=== PATIENT | female | born 1955 | race Caucasian/White ===

== ENCOUNTER 2019-04-13 03:45 | Inpatient (IN) ==
--- NOTE | 2019-04-06 09:00 | EKG Report ---
Test Performed on : 04/06/2019 08:43:55 AM Test Reason : PAT Blood Pressure : / mmHG Vent. Rate : 067 BPM Atrial Rate : 067 BPM P-R Int : 158 ms QRS Dur : 078 ms QT Int : 388 ms P-R-T Axes : 060 063 070 degrees QTc Int : 409 ms Normal sinus rhythm. Normal ECG No previous ECGs available Confirmed by Vic CINTRON, Brody Munson ([id number]) on 04/06/2019 5:23:06 PM
[2019-04-06 09:26] LABS: HEMATOCRIT 43.4 % (37.0-47.0); MCH 30.9 PG (27-31); MCHC 34.6 g/dL (33-37); MCV 89.5 FL (81-99); MPV 9.7 FL (7.4-10.4); RBC 4.85 XMIL (4.2-5.4); RDW 13.6 % (11.5-14.5); WBC 7.7 X1000 (4.8-10.8)
[2019-04-06 09:46] LABS: AGAP 12; BUN 10 mg/dL (8-22); CALCIUM 10.2 mg/dL (8.8-10.2); CHLORIDE 90 mmol/L (98-107); COSMO 259; CREATININE 0.6 mg/dL (0.5-0.9); ESTIMATED GFR > 60; GLUCOSE 88 mg/dL (70-104); POTASSIUM 4.4 mmol/L (3.5-5.1); SODIUM 130 mmol/L (136-145); TCO2 28 mmol/L (25-35)
[2019-04-13] MEDS ORDERED: LR 1,000 ML ONE (05:53)
[2019-04-13] MEDS ORDERED: KEFZOL 1 GM/D5W 1 GM/50 ML IVPB ONE (05:53)
[2019-04-13] MEDS ORDERED: DIPRIVAN 1% ONE (06:16)
[2019-04-13] MEDS ORDERED: FENTANYL ONE (06:17)
[2019-04-13] MEDS ORDERED: SENSORCAINE 0.25%/EPI 1:200,000 ONE (06:35)
[2019-04-13] MEDS ORDERED: PAPAVERINE ONE ×2 (06:35→06:37)
[2019-04-13] MEDS ORDERED: HEPARIN ONE ×2 (06:35)
[2019-04-13] MEDS ORDERED: KEFZOL ONE (06:35)
[2019-04-13] MEDS ORDERED: NS 1,000 ML ONE ×3 (06:36→10:32)
[2019-04-13] MEDS ORDERED: REGLAN ONE (07:00)
[2019-04-13] MEDS ORDERED: PEPCID ONE (07:00)
[2019-04-13] MEDS ORDERED: THROMBIN-JMI ONE (07:06)
[2019-04-13] MEDS ORDERED: RECOTHROM ONE (07:09)
[2019-04-13] MEDS ORDERED: NEO-SYNEPHRINE ONE (07:22)
[2019-04-13] MEDS ORDERED: QUELICIN (DOSE) ONE (07:22)
[2019-04-13] MEDS ORDERED: ZOFRAN ONE ×2 (07:22→09:16)
[2019-04-13] MEDS ORDERED: NORCURON ONE (07:22)
[2019-04-13] MEDS ORDERED: HEPARIN (DOSE) ONE (07:22)
[2019-04-13] MEDS ORDERED: SODIUM CHLORIDE 0.9% 10 ML ONE (07:22)
[2019-04-13] MEDS ORDERED: XYLOCAINE-MPF 2% ONE (07:22)
[2019-04-13 08:19] LABS: URINE SOURCE CATH
[2019-04-13 08:26] LABS: BILIRUBIN URINE NEGATIVE (NEGATIVE); BLOOD URINE NEGATIVE (NEGATIVE); COLOR STRAW; GLUCOSE URINE NEGATIVE (NEGATIVE); KETONE URINE NEGATIVE (NEGATIVE); LEUKOCYTES URINE NEGATIVE (NEGATIVE); NITRITE URINE NEGATIVE (NEGATIVE); PH URINE 7.5; PROTEIN URINE NEGATIVE (NEGATIVE); SP GRAVITY URINE 1.007; TURBIDITY URINE CLEAR (CLEAR); UR EPITHELIAL CELLS <10 /HPF (<10); URINE BACTERIA NEGATIVE /HPF; URINE RBC <10 /HPF (<10); URINE WBC <10 /HPF (<10); UROBILINOGEN URINE NORMAL (NORMAL)
[2019-04-13 08:47] LABS: HEMATOCRIT 34.9 % (37.0-47.0); HEMOGLOBIN 12.1 g/dL (12.0-16.0)
[2019-04-13 08:56] LABS: AGAP 12; BUN 6 mg/dL (8-22); CALCIUM 8.2 mg/dL (8.8-10.2); CHLORIDE 94 mmol/L (98-107); COSMO 261; CREATININE 0.3 mg/dL (0.5-0.9); ESTIMATED GFR > 60; GLUCOSE 216 mg/dL (70-104); POTASSIUM 3.7 mmol/L (3.5-5.1); SODIUM 128 mmol/L (136-145); TCO2 22 mmol/L (25-35)
[2019-04-13] MEDS ORDERED: MORPHINE ONE ×2 (09:11→10:35)
[2019-04-13] MEDS ORDERED: DECADRON ONE (09:16)
[2019-04-13] MEDS ORDERED: LABETALOL IV ONE (10:45)
--- NOTE | 2019-04-13 11:16 | OPERATIVE NOTE ---
PROCEDURE DATE: 04/13/2019 OPERATION: 1. Open left iliac arteriogram. 2. Aortobifemoral bypass. 3. Left common femoral endarterectomy. SURGEON: Varghese Stallworth MD. LOCKSTITCHER: Shay Mckeon RN. PREOPERATIVE DIAGNOSIS: Leriche syndrome. 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 FINDINGS: A retrograde arteriogram showed complete occlusion of the left common iliac with no retrograde flow into the aorta. DESCRIPTION OF PROCEDURE: After satisfactory general endotracheal anesthesia was achieved, the abdomen and groins were prepped and draped in a sterile fashion. An Ioban drape was used. Prophylactic Kefzol was given. The vertical incision was made in the left groin. We dissected down to the common femoral artery. We surrounded it with an umbilical tape and a vessel loop. 5000 units of heparin were given. We used a 7-Samoan sheath to access the left common femoral, just above the common femoral plaque. We passed a 7-Samoan sheath. We then shot a retrograde arteriogram with the findings above noted, that being common iliac occlusion with absolutely no retrograde flow into the aorta. So at this point, we realized an aortobifemoral bypass would be necessary. We then made a vertical incision in the right groin and dissected down to the common femoral, surrounded with an umbilical tape. The branch vessels were surrounded with vessel loops. Small branches were surrounded with 2-0 silks. We then made a midline abdominal incision. Dissection carried through the subcutaneous tissue through the midline fascia, entering the abdominal cavity the extent of the skin incision. Satisfactory hemostasis was achieved. We reflected the bowel to the right. We incised the retroperitoneum and dissected down to the aorta. We spared the inferior mesenteric artery. We spared the inferior mesenteric vein as well. Because of the calcific nature of the aorta we had to go all the way up to the left renal vein in order to clamp the aorta. After we exposed the aorta we then reflected the bowel to the left, used a bowel bag and then placed the bowel within the bowel bag and secured it. We used our Bookwalter retractor then to place retractors for the abdominal wall to the left cephalad and then also to retract the bowel to the right. This gave us adequate exposure to the retroperitoneum and the aorta. We then made tunnels from the groins to the abdominal aorta right along the course of the iliac vessels so we went posterior to the ureters. We passed umbilical tapes to maintain the tract that had been made. We did that on both sides. We then obtained a 14 x 7 bifurcated Dacron collagen impregnated graft so call Hemashield graft. We cut the aortic portion of the graft to shorten it somewhat and we then made a cuff to go on it. A small cuff would be used to surround the anastomosis. We then passed a side-biting clamp to the level of the renal vein. We passed it around the aorta and then clamped the aorta right at the level of the left renal vein. We obtained a TA 30 vascular stapler and used it a few cm distal to clamp and staple the distal aorta. We then cut off the cut out a portion of the wall. There was significant calcific plaque posteriorly which actually broke off the aortic wall and made the posterior aspect of the aortic wall somewhat tenuous. We then sewed the 14 x 7 Dacron graft to the aorta using a running 3-0 Prolene stitch. As we neared completion and finished the proximal anastomosis we then flushed the graft. Good flow was present into the graft. Good pulse was palpated. There was not a significant bleeding that would require any additional stitches. We then passed the cuff up over the anastomosis and once again, tested the anastomosis and again hemostasis was satisfactory. We waited a few minutes and did it again in order to test it again and once again, there was no bleeding that would require additional stitches and a good pulse was present in the graft. We then sucked out the limbs of the graft and then used a long Tessa clamp from the groins, went along the course of the previously made tract and pulled the limbs of the graft down to the groins taking them posterior to the ureters. We extended the graft adequately. There was no redundancy noted. We then began on the right side 1st and made arteriotomy. Fairly significant plaque was present in the right common femoral but we did not feel that we had to do an endarterectomy in order to sew the graft to the artery. We had backbleeding from the profunda as well as the deep femoral. We passed 3 dilators to prove that. We then cut the graft to match the arteriotomy and constructed the anastomosis using a 5-0 Prolene stitch. Upon completion, we clamped off the left limb of the aortobifemoral graft, and flushed the right limb. Good flow was present. We then. We finished the anastomosis, and we open the right limb. Additional stitches were required to achieve complete hemostasis of this anastomosis. We placed some Gel-Foam an antibiotic sponge and then turned our attention the left-side. We removed the side-biting clamp from the aorta. We then did the same thing on the left side. We had to clamp the external iliac off and remove our 7-Samoan sheath that had been placed previously and then where the 7-Samoan sheath had been we began there and used our Cornejo scissors to open the artery. The plaque was so significant that we had to do an endarterectomy of the common femoral plaque in order to have adequate lumen to sew to. We then cut the graft to match the arteriotomy. The arteriotomy did extend into the superficial femoral artery. Once again, passed the dilator through the profunda and the superficial femoral and had backbleeding from each of these. We then constructed the anastomosis to this artery as well. As we neared completion, we flushed the left limb of the graft. Good flow was present. No clots were seen. We then finished the anastomosis and flow was established. A couple of extra stitches were used to achieve complete hemostasis. We then turned our attention, we once again, placed an antibiotic sponge in the left groin and then went back to the abdomen. The retroperitoneum did not show any evidence of active bleeding from the proximal anastomosis. We then proceeded to close the peritoneum with a 3-0 Polysorb running stitch. We then returned the bowel to the abdominal cavity from the bag. We laid the omentum over the bowel. We then closed the anterior peritoneum with a 2-0 chromic. We closed the anterior fascia with a running #2 Prolene. We turned our attention to the right groin and closed the right groin in 2 layers with a 2-0 Polysorb running 1st and then 3-0 Polysorb simple subcutaneous stitches secondly. We did the same thing on the left side. Once again, hemostasis was satisfactory. A pulse was noted within both superficial and profunda femoral arteries. We then proceeded to close the skin with steven at all the incision. Sterile dressings were applied. She tolerated it well. Estimated blood loss was about 500 mL. We only used less than 15 mL for retrograde arteriogram of contrast. She tolerated it well, was sent to the recovery room in stable condition. cc: MD Jarett Fermin MD
[2019-04-13 11:52] LABS: ALLEN TEST YES; BE -4.4 mmoll (-3.0-3.0); BLOOD TYPE ARTERIAL; HCO3-(ACT) 21.5 mmoll (20.0-26.0); METHB 1.2 % (0.0-1.5); O2(CT) 14.6 mL/dL (15.0-23.0); O2HB 96.6 % (95.0-99.0); PCO2(98.6) 43 mmHg (35-45); PO2(98.6) 105 mmHg (60-100); SAMPLE BLOOD; SAO2 99.6 % (95.0-100.0); SRATE 10 BPM; THB 10.6 g/dL (11.5-17.4); TVOL 400 mL; pH(98.6) 7.31 (7.35-7.45)
[2019-04-13 11:55] LABS: MODALITY VENTILATOR
[2019-04-13] MEDS: NS 1,000 ML IV SCH ×2 (13:04→19:32)
[2019-04-13] MEDS: DILAUDID IV PRN ×3 (13:42→20:19)
[2019-04-13] MEDS: KEFZOL 1 GM/D5W 1 GM/50 ML IVPB IV SCH ×2 (15:46→22:35)
[2019-04-13] MEDS: ZOFRAN IV PRN (19:31)
--- NOTE | 2019-04-13 20:17 | GENERAL SURGERY PROGRESS NOTE ---
DATE: 04/13/2019 SUBJECTIVE: She is awake and alert. She is extubated. Her heart rate is 91, blood pressure is 118/88. She has bilateral breath sounds. Her bandages are dry. Her legs are warm. She has normal sensation in her legs. Her postop hemoglobin was 12.1. We will check her labs in the morning. Check a chest x-ray in the morning. cc: Varghese Stallworth MD
[2019-04-13] MEDS ORDERED: PHENERGAN IV ONE (21:40)
[2019-04-13] MEDS ORDERED: SODIUM CHLORIDE 0.9% INJ ONE (21:40)
[2019-04-13] MEDS: PERIDEX MT SCH (21:56)
[2019-04-14] MEDS: DILAUDID IV PRN ×6 (03:06→23:17)
[2019-04-14] MEDS: NS 1,000 ML IV SCH ×4 (03:11→20:11)
[2019-04-14] MEDS: KEFZOL 1 GM/D5W 1 GM/50 ML IVPB IV SCH ×3 (06:00→23:14)
[2019-04-14 06:42] LABS: ALLEN TEST YES; BE -4.8 mmoll (-3.0-3.0); BLOOD TYPE ARTERIAL; HCO3-(ACT) 21.1 mmoll (20.0-26.0); METHB 1.2 % (0.0-1.5); O2(CT) 13.5 mL/dL (15.0-23.0); O2HB 94.7 % (95.0-99.0); PCO2(98.6) 31 mmHg (35-45); PO2(98.6) 74 mmHg (60-100); SAMPLE BLOOD; SAO2 97.5 % (95.0-100.0); THB 10.1 g/dL (11.5-17.4)
[2019-04-14 06:43] LABS: MODALITY ROOM AIR
[2019-04-14 06:47] LABS: BASO# 0.01 X1000 (0.0-0.2); BASO% 0.1 % (0.0-0.8); HEMATOCRIT 30.3 % (37.0-47.0); HEMOGLOBIN 10.4 g/dL (12.0-16.0); IMM GRAN# 0.06 X1000 (0.0-0.04); IMM GRAN% 0.3 % (0.0-0.5); LYMPH# 1.64 X1000 (1.2-3.4); LYMPH% 8.9 % (20.5-51.1); MCH 30.6 PG (27-31); MCHC 34.3 g/dL (33-37); MCV 89.1 FL (81-99); MONO# 2.12 X1000 (0.11-0.59); MONO% 11.5 % (1.7-9.3); MPV 10.4 FL (7.4-10.4); NEUT# 14.68 X1000 (1.4-6.5); NEUT% 79.2 % (42.2-75.2); PLT 214 X1000 (130-400); RDW 13.3 % (11.5-14.5); WBC 18.51 X1000 (4.8-10.8)
--- NOTE | 2019-04-14 07:05 | Diag Imaging Result Doc PS360 ---
EXAM: CHEST-PORTABLE 04/14/2019 HISTORY: post op TECHNIQUE: AP portable at 0509 COMMENT: There is no evidence of acute cardiac or pulmonary disease and no previous studies are available for comparison. IMPRESSION: Normal chest. Electronically signed by Amando Leija 04/14/2019 7:03 AM
[2019-04-14 07:11] LABS: CALCIUM 8.3 mg/dL (8.8-10.2); POTASSIUM 4.5 mmol/L (3.5-5.1)
[2019-04-14] MEDS ORDERED: SODIUM CHLORIDE 0.9% INJ PRN ×2 (08:44→11:11)
[2019-04-14] MEDS: PERIDEX MT SCH ×2 (10:01→20:12)
[2019-04-14] MEDS: DEPAKOTE PO SCH (10:07)
[2019-04-14] MEDS: PRINZIDE 20/12.5MG PO SCH (10:07)
--- NOTE | 2019-04-14 10:19 | GENERAL SURGERY PROGRESS NOTE ---
DATE: 04/14/2019 SUBJECTIVE: She is postop day 1 after aortobifemoral bypass. She is doing generally well. OBJECTIVE: General: She is awake and alert. Vital Signs: Her heart rate is about 108. Blood pressure was 160/100. Her respiratory rate is 20. She is on room air. Respiratory: Her lungs sound clear. Urine Output: Her urine output has picked up overnight. Laboratory data reveals a pH of 7.40, pCO2 of 31, and pO2 of 74. Her lactate is 3. Her chest x- ray is clear. Her hemoglobin is 10.4, hematocrit 30, and white count 18,000. Sodium is 134, potassium 4.5, chloride 100, carbon dioxide 17, BUN 18, and creatinine 1. ASSESSMENT AND PLAN: Her legs are warmer than they were preop. She does have Doppler flow at both posterior tibial positions. She says that her legs feel better. The plan is to continue with her IV fluids at 125. We will allow her to have ice chips. We will recheck her labs tomorrow. cc: Varghese Stallworth MD
[2019-04-14] MEDS: ZOFRAN IV PRN (11:09)
[2019-04-14] MEDS: PHENERGAN IV PRN ×2 (11:32→17:43)
[2019-04-15] MEDS: ZOFRAN IV PRN ×4 (00:06→20:43)
[2019-04-15] MEDS: PHENERGAN IV PRN ×2 (02:16→17:47)
[2019-04-15] MEDS: DILAUDID IV PRN ×8 (02:50→23:40)
[2019-04-15] MEDS: NS 1,000 ML IV SCH ×4 (04:23→20:42)
[2019-04-15 05:23] LABS: BASO# 0.01 X1000 (0.0-0.2); BASO% 0.1 % (0.0-0.8); HEMATOCRIT 20.4 % (37.0-47.0); IMM GRAN# 0.04 X1000 (0.0-0.04); IMM GRAN% 0.4 % (0.0-0.5); LYMPH# 1.37 X1000 (1.2-3.4); LYMPH% 12.3 % (20.5-51.1); MCH 30.7 PG (27-31); MCHC 34.3 g/dL (33-37); MCV 89.5 FL (81-99); MONO% 11.7 % (1.7-9.3); MPV 9.9 FL (7.4-10.4); NEUT# 8.41 X1000 (1.4-6.5); NEUT% 75.5 % (42.2-75.2); PLT 162 X1000 (130-400); RBC 2.28 XMIL (4.2-5.4); RDW 13.5 % (11.5-14.5); WBC 11.13 X1000 (4.8-10.8)
[2019-04-15 05:57] LABS: AGAP 6; BUN 15 mg/dL (8-22); CALCIUM 7.7 mg/dL (8.8-10.2); CHLORIDE 104 mmol/L (98-107); COSMO 267; CREATININE 0.5 mg/dL (0.5-0.9); ESTIMATED GFR > 60; GLUCOSE 100 mg/dL (70-104); POTASSIUM 3.6 mmol/L (3.5-5.1); SODIUM 133 mmol/L (136-145); TCO2 23 mmol/L (25-35)
[2019-04-15] MEDS: SYNTHROID IV SCH (06:03)
[2019-04-15] MEDS: KEFZOL 1 GM/D5W 1 GM/50 ML IVPB IV SCH (06:03)
[2019-04-15] MEDS: PERIDEX MT SCH ×2 (08:02→20:43)
[2019-04-15] MEDS: DEPAKOTE PO SCH (08:02)
[2019-04-15] MEDS: PRINZIDE 20/12.5MG PO SCH (08:03)
[2019-04-15] MEDS ORDERED: LASIX IV ONE (09:05)
--- NOTE | 2019-04-15 14:37 | GENERAL SURGERY PROGRESS NOTE ---
DATE: 04/15/2019 She is postop day 2 after aortobifemoral bypass. Heart rate is 112, blood pressure is 137/88. She is awake and alert. She is breathing satisfactorily. Her O2 saturation is 91% on room air. Her nausea is improved. She now has palpable pedal pulses. Input 3100, output 790. LABORATORY DATA: White count 33977, hemoglobin 7, hematocrit 20, sodium 133, potassium 3.6, chloride 104, carbon dioxide 23. ASSESSMENT: She is mobilizing her fluid. She is perfusing much better now. PLAN: To reduce her IV rate to 70. Will give her 2 units of packed cells. We will give her 20 mg of Lasix. I will allow her to have clear liquids. cc: Varghese Stallworth MD
[2019-04-16] MEDS: NS 1,000 ML IV SCH (06:30)
[2019-04-16] MEDS: SYNTHROID IV SCH (06:30)
[2019-04-16] MEDS: DILAUDID IV PRN ×4 (06:48→21:03)
[2019-04-16 07:11] LABS: BASO# 0.01 X1000 (0.0-0.2); BASO% 0.1 % (0.0-0.8); EOS# 0.01 X1000 (0.0-0.7); EOS% 0.1 % (0.0-10.0); HEMOGLOBIN 11.5 g/dL (12.0-16.0); LYMPH# 1.59 X1000 (1.2-3.4); LYMPH% 12.6 % (20.5-51.1); MCH 31.2 PG (27-31); MCHC 33.8 g/dL (33-37); MCV 92.1 FL (81-99); MONO# 1.24 X1000 (0.11-0.59); MONO% 9.8 % (1.7-9.3); MPV 9.7 FL (7.4-10.4); NEUT# 9.75 X1000 (1.4-6.5); NEUT% 77.4 % (42.2-75.2); PLT 157 X1000 (130-400); RBC 3.69 XMIL (4.2-5.4); RDW 14.2 % (11.5-14.5)
[2019-04-16 07:43] LABS: AGAP 14; BUN 11 mg/dL (8-22); CALCIUM 8.4 mg/dL (8.8-10.2); CHLORIDE 95 mmol/L (98-107); COSMO 266; CREATININE 0.5 mg/dL (0.5-0.9); ESTIMATED GFR > 60; GLUCOSE 75 mg/dL (70-104); POTASSIUM 3.2 mmol/L (3.5-5.1); SODIUM 134 mmol/L (136-145); TCO2 25 mmol/L (25-35)
[2019-04-16] MEDS: PRINZIDE 20/12.5MG PO SCH (07:59)
[2019-04-16] MEDS: DEPAKOTE PO SCH (07:59)
[2019-04-16] MEDS: PERIDEX MT SCH ×2 (07:59→21:07)
[2019-04-16] MEDS ORDERED: POTASSIUM CHLORIDE 40 MEQ/SWI 40 MEQ/100 ML IVPB IV ONE (08:34)
[2019-04-16] MEDS ORDERED: NS 1,000 ML IV SCH (08:35)
[2019-04-16] MEDS: POTASSIUM CHLORIDE 20 MEQ/SWI 20 MEQ/100 ML IVPB IV SCH ×2 (09:10→12:39)
[2019-04-16] MEDS: LIPITOR PO SCH (09:10)
--- NOTE | 2019-04-16 14:32 | GENERAL SURGERY PROGRESS NOTE ---
DATE: 04/16/2019 Ms. Tse is now 3 days after aortobifemoral bypass. She is afebrile. Heart rate 99, blood pressure is 168/87. She appears to be in occasional trigeminy. These are unifocal PVCs. Her intake is 3325, output 2375. She has some rhonchi in her lungs bilaterally. She has taken clear liquids satisfactorily. She has normal pedal pulses. Her feet are very warm. [place]ATORY: [place] [address], hemoglobin 11.5, hematocrit 34, sodium 134, potassium 3.2, chloride 95, carbon dioxide 25, BUN 11, creatinine 0.5. PLAN: The plan today is to advance her to full liquids. I will make her IV KVO. I will give her some potassium IV. We will switch her levothyroxine from IV to p.o. I will give her offer some p.o. pain medicine. We will put her back on her atorvastatin. We will transfer her to a telemetry bed on the floor. cc: Varghese Stallworth MD
[2019-04-16] MEDS: ZOFRAN IV PRN (21:03)
[2019-04-17] MEDS: DILAUDID IV PRN ×2 (03:55→20:34)
[2019-04-17] MEDS: ZOFRAN IV PRN ×2 (03:55→20:33)
[2019-04-17] MEDS: SYNTHROID PO SCH ×2 (05:31→07:04)
[2019-04-17 06:40] LABS: BASO# 0.02 X1000 (0.0-0.2); BASO% 0.1 % (0.0-0.8); EOS# 0.03 X1000 (0.0-0.7); EOS% 0.2 % (0.0-10.0); HEMATOCRIT 34.7 % (37.0-47.0); HEMOGLOBIN 11.7 g/dL (12.0-16.0); LYMPH# 1.49 X1000 (1.2-3.4); LYMPH% 10.7 % (20.5-51.1); MCH 31.1 PG (27-31); MCHC 33.7 g/dL (33-37); MCV 92.3 FL (81-99); MONO# 1.48 X1000 (0.11-0.59); MONO% 10.6 % (1.7-9.3); MPV 9.4 FL (7.4-10.4); NEUT# 10.96 X1000 (1.4-6.5); NEUT% 78.4 % (42.2-75.2); PLT 163 X1000 (130-400); RBC 3.76 XMIL (4.2-5.4); RDW 14.2 % (11.5-14.5); WBC 13.98 X1000 (4.8-10.8)
[2019-04-17 07:24] LABS: AGAP 15; BUN 11 mg/dL (8-22); CALCIUM 8.4 mg/dL (8.8-10.2); CHLORIDE 94 mmol/L (98-107); COSMO 263; CREATININE 0.5 mg/dL (0.5-0.9); ESTIMATED GFR > 60; GLUCOSE 78 mg/dL (70-104); SODIUM 132 mmol/L (136-145); TCO2 23 mmol/L (25-35)
[2019-04-17] MEDS ORDERED: SALINE LOCK IV FLUID XX ONE (09:33)
--- NOTE | 2019-04-17 09:44 | GENERAL SURGERY PROGRESS NOTE ---
DATE: 04/17/2019 Ms. Tse is now 4 days after her aortobifemoral bypass. She is afebrile, heart rate 81, blood pressure 168/82. Her lungs sound clear. She tolerating her full liquids. She had 1490 in and 1400 out yesterday. She is passing flatus, and her bowels have moved. White count is 13,900, hemoglobin 11.7. Potassium is up to 4.0. The plan is to advance her to solid food. We will make her IV saline lock. Hopefully, discharge on 04/18/2019. cc: Varghese Stallworth MD
[2019-04-17] MEDS: LIPITOR PO SCH (10:49)
[2019-04-17] MEDS: DEPAKOTE PO SCH (10:49)
[2019-04-17] MEDS: PRINZIDE 20/12.5MG PO SCH (10:49)
[2019-04-17] MEDS: PERIDEX MT SCH (10:49)
[2019-04-17] MEDS: NORCO-10 PO PRN ×2 (10:52→15:26)
[2019-04-17] MEDS: PHENERGAN IV PRN (17:59)
[2019-04-18] MEDS ORDERED: PREPARATION H OINT TOP PRN (03:46)
[2019-04-18] MEDS: PERIDEX MT SCH ×2 (04:46→10:07)
[2019-04-18] MEDS: DILAUDID IV PRN (04:47)
[2019-04-18] MEDS: SYNTHROID PO SCH ×2 (04:47→07:07)
[2019-04-18] MEDS: ZOFRAN IV PRN (04:47)
[2019-04-18] MEDS: NORCO-10 PO PRN ×3 (04:56→18:26)
[2019-04-18] MEDS: PRINZIDE 20/12.5MG PO SCH (10:07)
[2019-04-18] MEDS: LIPITOR PO SCH (10:07)
[2019-04-18] MEDS: DEPAKOTE PO SCH (10:07)
[2019-04-18 12:20] VITALS: BP 160/76
--- NOTE | 2019-04-18 22:18 | GENERAL SURGERY PROGRESS NOTE ---
DATE: 04/18/2019 She is afebrile. Hemodynamics are good. She has pulses in her feet. Her wounds are fine. She is eating solid food satisfactorily. The plan is to discharge her today. I discussed with her the importance of not smoking. She will return to see me in the office in a week. Activity, wound care and diet were discussed. cc: Varghese Stallworth MD
== END 2019-04-18 18:42 | disposition home or self-care (01) | DRG 272 ==
LOC: SURHOLD 03:45 → ICU 07:58 → 4N 04-16 19:54
PROVIDERS: ADMIT Surgery; ATTEND Surgery